=== PATIENT | female | born 1935 | race Caucasian/White ===

== ENCOUNTER 2020-10-08 19:01 | Observation (INO) ==
[2020-10-08 23:01] LABS: Calcium 8.7 mg/dL (8.6-10.3); Potassium 4.2 mEq/L (3.5-5.1)
[2020-10-08 23:08] LABS: Basophils % 0.3 %; Eosinophils # 0.1 K/mcL (0.0-0.6); Eosinophils % 0.6 %; Hematocrit 38.8 % (35.3-44.9); Hemoglobin 12.9 g/dL (11.5-15.4); Immature Granulocytes % 0.9 % (0-4); Lymphocytes # 3.3 K/mcL (0.6-4.6); Lymphocytes % 28.5 %; Mean Corpuscular HGB Conc 33.2 g/dL (31.6-35.5); Mean Corpuscular Hemoglobin 30.2 pg (28.0-33.3); Mean Corpuscular Volume 90.9 fL (83.0-100.0); Mean Platelet Volume 9.5 fL (9.4-12.4); Monocytes # 0.8 K/mcL (0.0-1.3); Neutrophils # 7.4 K/mcL (1.6-8.9); Platelet Count 245 K/mcL (140-400); Red Blood Count 4.27 M/mcL (3.82-4.97); Red Cell Distribution Width 13.9 % (11.5-14.5); Segmented Neutrophils % 62.7 %; White Blood Count 11.7 K/mcL (4.3-11.1)
[2020-10-08 23:35] LABS: Bilirubin,Urine Negative (Negative); Blood,Urine Negative (Negative); Clarity,Urine Clear (Clear); Color,Urine Light-Yellow (Yellow); Glucose,Urine (UA) Normal (Normal); Ketones,Urine Negative (Negative); Leukocyte Esterase,Urine Moderate (Negative); Mucus,Urine Few per lpf (None-Few); Nitrite,Urine Negative (Negative); Protein,Urine Negative (Neg-Trace); Specific Gravity,Urine 1.021 (1.010-1.025); Squamous Epithelial Cell,Urine Few per hpf (None-Few); Urobilinogen,Urine Normal (Normal); WBC,Urine 15-30 per hpf (0-3)
[2020-10-08] MEDS ORDERED: cefTRIAXone 1,000 MG in 0.9 % Sodium Chloride Mini Bag 100 ML IVPB ONE (23:59)
[2020-10-09] MEDS ORDERED: Ondansetron 4 MG/2 ML VIAL IVP PRN (05:09)
[2020-10-09] MEDS ORDERED: Naloxone 0.4 MG/ML INJ IVP PRN (05:09)
[2020-10-09] MEDS ORDERED: Ipratropium/Albuterol Neb 3 ML IH PRN (05:12)
[2020-10-09] MEDS: *HR* Heparin 5,000 UNIT/ML VIAL SQ SCH ×3 (06:05→22:21)
[2020-10-09 06:56] LABS: Calcium 8.9 mg/dL (8.6-10.3)
[2020-10-09 07:23] LABS: Folate > 22.3 ng/mL (3.0-16.0); Vitamin B12 > 1500 pg/mL (250-1100)
[2020-10-09] MEDS: Acetaminophen 325 MG TABLET PO PRN (17:49)
[2020-10-09] MEDS ORDERED: cefTRIAXone 1,000 MG in 0.9 % Sodium Chloride Mini Bag 100 ML IVPB SCH (18:00)
[2020-10-09] MEDS ORDERED: clonazePAM 0.5 MG TABLET PO PRN (22:32)
[2020-10-10 02:39] LABS: Basophils # 0.1 K/mcL (0.0-0.2); Basophils % 0.5 %; Eosinophils # 0.2 K/mcL (0.0-0.6); Eosinophils % 1.9 %; Hematocrit 36.5 % (35.3-44.9); Hemoglobin 11.6 g/dL (11.5-15.4); Immature Granulocytes % 0.7 % (0-4); Lymphocytes # 2.6 K/mcL (0.6-4.6); Mean Corpuscular HGB Conc 31.8 g/dL (31.6-35.5); Mean Corpuscular Hemoglobin 29.3 pg (28.0-33.3); Mean Corpuscular Volume 92.2 fL (83.0-100.0); Mean Platelet Volume 9.6 fL (9.4-12.4); Monocytes # 0.7 K/mcL (0.0-1.3); Monocytes % 6.8 %; Neutrophils # 6.1 K/mcL (1.6-8.9); Platelet Count 217 K/mcL (140-400); Red Blood Count 3.96 M/mcL (3.82-4.97); Segmented Neutrophils % 63.1 %; White Blood Count 9.6 K/mcL (4.3-11.1)
[2020-10-10 02:52] LABS: Calcium 8.6 mg/dL (8.6-10.3); Potassium 4.3 mEq/L (3.5-5.1)
[2020-10-10] MEDS: *HR* Heparin 5,000 UNIT/ML VIAL SQ SCH ×2 (05:35→14:53)
[2020-10-10] MEDS: Acetaminophen 325 MG TABLET PO PRN (08:49)
[2020-10-10] MEDS ORDERED: Multivit/Ca/Min/Fe/FA 1 TAB TABLET PO SCH (09:00)
[2020-10-10] MEDS ORDERED: clonazePAM 0.5 MG TABLET PO PRN (14:14)
[2020-10-10] MEDS ORDERED: lisinopriL 20 MG TABLET PO SCH (14:15)
[2020-10-10] MEDS ORDERED: cefTRIAXone 1,000 MG in 0.9 % Sodium Chloride Mini Bag 100 ML IVPB ONE (17:00)
[2020-10-10 18:52] LABS: Adenovirus Not Detected (Not Detect); Bordetella Pertussis Not Detected (Not Detect); Chlamydophila pneumoniae Not Detected (Not Detect); Coronavirus 229E Not Detected (Not Detect); Coronavirus HKU1 Not Detected (Not Detect); Coronavirus NL63 Not Detected (Not Detect); Coronavirus OC43 Not Detected (Not Detect); Human Metapneumovirus Not Detected (Not Detect); Human Rhinovirus/Enterovirus Not Detected (Not Detect); Influenza A Subtype 2009 H1 Not Detected (Not Detect); Influenza B Not Detected (Not Detect); Mycoplasma pneumoniae Not Detected (Not Detect); Parainfluenza Virus 1 Not Detected (Not Detect); Parainfluenza Virus 2 Not Detected (Not Detect); Parainfluenza Virus 3 Not Detected (Not Detect); Parainfluenza Virus 4 Not Detected (Not Detect); Respiratory Syncytial Virus Not Detected (Not Detect); SARS-CoV-2 Not Detected (Not Detect)
[2020-10-10 19:35] VITALS: BP 137/61; PULSE 63; TEMP 98.3; O2SAT 96
[2020-10-11] MEDS ORDERED: levoFLOXacin 250 MG TABLET PO SCH (09:00)
[2020-10-11] MEDS ORDERED: Cholecalciferol (D-3) 1,000 UNIT (25MCG) TABLET PO SCH (09:00)
[2020-10-11] MEDS ORDERED: Cyanocobalamin (B-12) 1,000 MCG TABLET PO SCH (09:00)
== END 2020-10-10 19:42 ==
LOC: EMEROOARM 19:01 → 2ANU 19:01 → SUATTDRO 10-09 03:15 → 2ANU 10-09 03:59
PROVIDERS: ADMIT Internal Medicine; ATTEND General Practice

== ENCOUNTER 2021-08-05 14:06 | Observation (INO) ==
[2021-08-05 15:45] LABS: Basophils # 0.1 K/mcL (0.0-0.2); Basophils % 0.7 %; Eosinophils # 0.2 K/mcL (0.0-0.6); Eosinophils % 3.1 %; Hematocrit 35.4 % (35.3-44.9); Hemoglobin 11.5 g/dL (11.5-15.4); Immature Granulocytes % 0.9 % (0-4); Lymphocytes % 26.9 %; Mean Corpuscular HGB Conc 32.5 g/dL (31.6-35.5); Mean Corpuscular Volume 92.4 fL (83.0-100.0); Mean Platelet Volume 9.6 fL (9.4-12.4); Monocytes # 0.6 K/mcL (0.0-1.3); Monocytes % 7.9 %; Neutrophils # 4.5 K/mcL (1.6-8.9); Platelet Count 252 K/mcL (140-400); Red Blood Count 3.83 M/mcL (3.82-4.97); Red Cell Distribution Width 14.9 % (11.5-14.5); Segmented Neutrophils % 60.5 %; White Blood Count 7.5 K/mcL (4.3-11.1)
[2021-08-05 16:04] LABS: Albumin 3.8 g/dL (3.5-5.7); Albumin/Globulin Ratio 1.4 (1.1-2.2); Bilirubin,Total 0.7 mg/dL (0.3-1.0); Calcium 9.1 mg/dL (8.6-10.3); Globulin 2.8 g/dL (2.4-3.5); Magnesium 1.9 mg/dL (1.6-2.6); Potassium 4.3 mEq/L (3.5-5.1); Total Protein 6.6 g/dL (6.4-8.9)
[2021-08-05 16:11] LABS: Bilirubin,Urine Negative (Negative); Blood,Urine Trace (Negative); Clarity,Urine Turbid (Clear); Color,Urine Yellow (Yellow); Glucose,Urine (UA) Normal (Normal); Hyaline Casts,Urine Few per lpf (None Seen); Ketones,Urine Negative (Negative); Leukocyte Esterase,Urine Large (Negative); Nitrite,Urine Negative (Negative); PH,Urine 6.5 pH Units (5.0-8.0); Protein,Urine Trace mg/dL (Neg-Trace); Specific Gravity,Urine 1.018 (1.010-1.025); Squamous Epithelial Cell,Urine Few per hpf (None-Few); Urobilinogen,Urine Normal (Normal); WBC,Urine TNTC per hpf (0-3)
[2021-08-05] MEDS ORDERED: Cefdinir 300 MG CAPSULE PO STA (16:19)
[2021-08-05] MEDS ORDERED: Naloxone 0.4 MG/ML INJ IVP PRN (18:16)
[2021-08-05] MEDS ORDERED: Ondansetron ODT 4 MG TAB.RAPDIS SL PRN (18:16)
[2021-08-05] MEDS ORDERED: Perflutren Lipid Microsphere 1.3 ML in 0.9 % Sodium Chloride 8.7 ML IVP PRN (18:29)
[2021-08-05] MEDS ORDERED: 0.9 % Sodium Chloride 1,000 ML IVC SCH (18:30)
[2021-08-05] MEDS ORDERED: D5% in Water 1,000 ML IVC PRN (18:52)
[2021-08-05] MEDS ORDERED: *HR* Dextrose 50 % in Water (Syg) 50 ML SYRINGE IVP PRN (18:52)
[2021-08-05] MEDS ORDERED: Dextrose Gel 15 GM/37.5 ML TUBE PO PRN ×2 (18:52)
[2021-08-05 19:24] LABS: Estimated Average Glucose 157 mg/dl; Hemoglobin A1C 7.1 %
[2021-08-05] MEDS: Insulin LISPRO 300 UNITS/3 ML VIAL SUBQ SCH (20:34)
[2021-08-05] MEDS ORDERED: clonazePAM 0.5 MG TABLET PO PRN (23:55)
[2021-08-06] MEDS: Melatonin 3 MG TABLET PO PRN ×2 (02:19→21:47)
[2021-08-06] MEDS: Acetaminophen 325 MG TABLET PO PRN ×2 (02:19→21:47)
[2021-08-06 03:30] LABS: Hematocrit 32.7 % (35.3-44.9); Hemoglobin 10.8 g/dL (11.5-15.4); Mean Corpuscular Hemoglobin 30.3 pg (28.0-33.3); Mean Corpuscular Volume 91.9 fL (83.0-100.0); Mean Platelet Volume 9.6 fL (9.4-12.4); Platelet Count 236 K/mcL (140-400); Red Blood Count 3.56 M/mcL (3.82-4.97); Red Cell Distribution Width 14.9 % (11.5-14.5); White Blood Count 7.9 K/mcL (4.3-11.1)
[2021-08-06 03:35] LABS: INR 1.1
[2021-08-06 03:43] LABS: Calcium 8.8 mg/dL (8.6-10.3); Chol/HDL Ratio 3.6 (0-4.9); Magnesium 1.8 mg/dL (1.6-2.6); Phosphorous 3.3 mg/dL (2.7-4.5); Potassium 4.1 mEq/L (3.5-5.1)
[2021-08-06 04:06] LABS: Folate > 22.3 ng/mL (3.0-16.0); Vitamin B12 1469 pg/mL (250-1100)
[2021-08-06] MEDS: *HR* Heparin 5,000 UNIT/ML VIAL SQ SCH ×2 (05:51→17:35)
[2021-08-06] MEDS ORDERED: cefTRIAXone 2,000 MG in 0.9 % Sodium Chloride 20 ML IVP SCH (09:00)
[2021-08-06] MEDS: Insulin LISPRO 300 UNITS/3 ML VIAL SUBQ SCH ×4 (09:31→21:38)
[2021-08-06] MEDS ORDERED: CLONAZEPAM 0.5 MG PO PRN (11:22)
[2021-08-06] MEDS: lisinopriL 20 MG TABLET PO SCH (11:51)
[2021-08-07] MEDS: *HR* Heparin 5,000 UNIT/ML VIAL SQ SCH ×2 (04:27→17:18)
[2021-08-07] MEDS: Acetaminophen 325 MG TABLET PO PRN (04:27)
[2021-08-07] MEDS: Insulin LISPRO 300 UNITS/3 ML VIAL SUBQ SCH ×4 (08:53→21:16)
[2021-08-07] MEDS: cefTRIAXone 1,000 MG in 0.9 % Sodium Chloride 10 ML IVP SCH (09:00)
[2021-08-07] MEDS: lisinopriL 20 MG TABLET PO SCH (09:00)
[2021-08-07] MEDS: Aspirin Enteric Coated 81 MG Tablet PO SCH (09:00)
[2021-08-07] MEDS: Melatonin 3 MG TABLET PO PRN (21:19)
[2021-08-08] MEDS: *HR* Heparin 5,000 UNIT/ML VIAL SQ SCH ×2 (05:51→17:09)
[2021-08-08] MEDS: Insulin LISPRO 300 UNITS/3 ML VIAL SUBQ SCH ×4 (07:39→19:33)
[2021-08-08] MEDS: Aspirin Enteric Coated 81 MG Tablet PO SCH (07:58)
[2021-08-08] MEDS: lisinopriL 20 MG TABLET PO SCH (07:58)
[2021-08-08] MEDS: cefTRIAXone 1,000 MG in 0.9 % Sodium Chloride 10 ML IVP SCH (07:58)
[2021-08-09] MEDS: *HR* Heparin 5,000 UNIT/ML VIAL SQ SCH ×2 (05:36→17:11)
[2021-08-09] MEDS: Insulin LISPRO 300 UNITS/3 ML VIAL SUBQ SCH ×3 (07:42→16:17)
[2021-08-09] MEDS: Aspirin Enteric Coated 81 MG Tablet PO SCH (09:50)
[2021-08-09] MEDS: Acetaminophen 325 MG TABLET PO PRN (09:50)
[2021-08-09] MEDS: lisinopriL 20 MG TABLET PO SCH (09:51)
[2021-08-09 12:15] VITALS: O2SAT 96
[2021-08-09 16:30] VITALS: BP 135/78; PULSE 71; TEMP 97.5
[2021-08-09 17:37] LABS: Influenza A PCR Negative (Negative); Influenza B PCR Negative (Negative); Resp. Syncytial Virus PCR Negative (Negative)
[2021-08-09 17:41] LABS: SARS-CoV-2 by PCR (In House) Negative (Negative)
== END 2021-08-09 19:24 | disposition other institution (70) ==
LOC: EMEROOARM 14:06 → 3ANU 14:06 → SUATTDRO 17:26 → 3ANU 18:23
PROVIDERS: ADMIT Internal Medicine; ATTEND Internal Medicine